=== PATIENT | female | born 1960 | race Caucasian/White ===

== ENCOUNTER 2020-04-08 17:26 | Emergency (ER) | payer BC, OTHER | END 2020-04-08 17:35 | disposition home or self-care (01) | LOC: JVIRT 17:26 | DX: Z20.828 Contact with and (suspected) exposure to other viral communicable diseases (principal) | CPT/HCPCS: C9803; G2012-GT; Q3014-GT; U0003 ==

== ENCOUNTER 2021-04-18 10:56 | Emergency (ER) | payer BC, OTHER ==
[2021-04-18 11:39] VITALS: BP 138/92; PULSE 89; TEMP 98.7; BMI 24.3
== END 2021-04-18 12:33 | disposition home or self-care (01) ==
LOC: JER 10:56
DX: Z11.52 Encounter for screening for COVID-19 (principal)
CPT/HCPCS: 99283-25; C9803; U0003; U0005

== ENCOUNTER 2021-05-03 10:19 | Emergency (ER) | payer BC, OTHER ==
[2021-05-03 10:25] VITALS: BP 116/78; PULSE 71; TEMP 97; BMI 24.3
== END 2021-05-03 11:04 | disposition home or self-care (01) ==
LOC: JER 10:19
DX: R51.9 Headache, unspecified (principal); Z11.52 Encounter for screening for COVID-19
CPT/HCPCS: 99283-25; C9803; U0003; U0005